=== PATIENT | female | born 1990 | race Two or more races ===

== ENCOUNTER 2021-12-24 12:39 | Outpatient (CLI) | payer OTHER, SELFPAY ==
[2021-12-24 16:59] LABS: SARS PCR* Negative SARS-CoV-2 (Negative)
== END 2021-12-24 12:40 | disposition home or self-care (01) ==
PROVIDERS: Visit Provider Nurse Practitioner Family
DX: Z20.822 Contact with and (suspected) exposure to COVID-19 (principal); R05.9 Cough, unspecified
CPT/HCPCS: 87635; 87804

== ENCOUNTER 2022-02-07 09:04 | Outpatient (CLI) | payer OTHER, SELFPAY ==
[2022-02-07 14:11] LABS: HCG Quantitative* < 2.39 mIU/mL
== END 2022-02-07 09:05 | disposition home or self-care (01) ==
LOC: KYNREF 09:06
PROVIDERS: Visit Provider Nurse Practitioner Family
DX: Z34.90 Encounter for supervision of normal pregnancy, unspecified, unspecified trimester (principal)
CPT/HCPCS: 84702

== ENCOUNTER 2024-07-08 15:55 | Outpatient (CLI) | payer BC, SELFPAY | END 2024-07-08 15:56 | disposition home or self-care (01) | PROVIDERS: PCP Nurse Practitioner Family; Visit Provider Nurse Practitioner Family | DX: H53.121 Transient visual loss, right eye (principal); Z13.228 Encounter for screening for other metabolic disorders; Z13.6 Encounter for screening for cardiovascular disorders; Z13.21 Encounter for screening for nutritional disorder; Z13.0 Encounter for screening for diseases of the blood and blood-forming organs and certain disorders involving the immune mechanism | CPT/HCPCS: 80053; 80061; 84443; 85025 ==